=== PATIENT | female | born 1975 | race Caucasian/White ===

== ENCOUNTER 2016-09-24 11:49 | Emergency (ER) | payer BC ==
--- NOTE | 2016-09-24 12:11 | Emergency Department Record ---
History of Present Illness - General Chief Complaint: Abdominal Pain Stated Complaint: STOMACH BUG Time Seen by Provider: 09/24/16 12:06 Source: Patient Mode of Arrival: Ambulatory Limitations: No limitations - History of Present Illness Initial Comments: The patient is here due to a 2 day hx of nausea, vomiting, and loose stools. She has vomited twice today and also has had 2 episodes of diarrhea. She denies any blood in the stool or vomit and does also deny any fever, chills, dysuria or back pain. The patient does have a hx of a gastric sleeve surgery in the past and does have her GB and Appendix. MD Complaint: Abdominal pain Onset/Timin -: Days(s) Location: Diffuse Radiation: None Migration to: No migration Severity: Moderate Quality: Aching Consistency: Constant Improves With: Nothing Worsens With: Vomiting Associated Symptoms: Diarrhea, Nausea, Vomiting - Related Data LMP Date: 09/18/16 Patient : No Home Medications Medication Instructions Recorded Confirmed Last Taken Esomeprazole Magnesium [Nexium] 40 mg PO DAILY 09/24/16 09/24/16 Unknown Ferrous Sulfate [Iron] 325 mg PO DAILY 09/24/16 09/24/16 Unknown Levothyroxine Sodium [Synthroid] 175 mcg PO DAILY 09/24/16 09/24/16 Unknown Previous Rx's Medication Instructions Recorded Ondansetron [Zofran Odt] 4 mg SL .Q4-6H PRN #12 tab.rapdis 09/24/16 Allergies Allergy/AdvReac Type Severity Reaction Status Date / Time morphine AdvReac Severe VOMITING Verified 09/24/16 12:00 Travel Screening - Travel/Exposure Within Last 30 Days Have you traveled within the last 30 days?: No Review of Systems Constitutional: Denies: Chills, Fever Eyes: Denies: Eye discharge ENT: Denies: Congestion Respiratory: Denies: Cough, Dyspnea Past Medical History - SOCIAL HISTORY Smoking Status: Never smoker Alcohol Use: Occasional Drug Use: None - RESPIRATORY Hx Respiratory Disorders: Yes Hx Asthma: Yes Hx Bronchitis: Yes Hx COPD: Yes Hx Pneumonia: Yes - CARDIOVASCULAR Hx Cardio Disorders: Yes Hx Hypotension: Yes - NEURO Hx Neuro Disorders: No - GI Hx GI Disorders: Yes Hx Reflux: Yes Comment:: gallbladder infections - Hx Genitourinary Disorders: Yes Hx Kidney Stones: Yes - ENDOCRINE Hx Endocrine Disorders: Yes Hx Thyroid Disease: Yes - MUSCULOSKELETAL Hx Musculoskeletal Disorders: No - PSYCH Hx Psych Problems: No - HEMATOLOGY/ONCOLOGY Hx Hematology/Oncology Disorders: Yes Hx Cancer: Yes (nasal, ovarian) Hx Chemotherapy: Yes (oral) Hx Radiation Therapy: Yes Comment:: autoimmune disorder Family Medical History Any Significant Family History?: Yes Hx Cancer: Father, Grandparents *Cancer Comment: Aunt-breast Hx Diabetes: Mother Hx Heart Disease: Mother Hx Resp Disorders: Father Physical Exam - General General Appearance: Alert, Oriented x3, Cooperative, No acute distress - Head Head exam: Atraumatic - Eye Eye exam: Normal appearance, PERRL - Neck Neck exam: Normal inspection, Full ROM. negative: Tenderness - Respiratory Respiratory exam: Normal lung sounds bilaterally. negative: Respiratory distress - Cardiovascular Cardiovascular Exam: Regular rate, Normal rhythm, Normal heart sounds - GI/Abdominal GI/Abdominal exam: Soft, Tenderness (There is mild mid abdominal tenderness but the abdomen is very soft.). negative: Distended, Guarding, Hernia, Rebound, Rigid - Extremities Extremities exam: Normal inspection, Full ROM, Normal capillary refill. negative: Tenderness - Neurological Neurological exam: Alert, Normal gait. negative: Abnormal gait, Motor sensory deficit Course Vital Signs 09/24/16 11:55 Temperature 98.0 F Pulse Rate 72 Respiratory 20 Rate Blood Pressure 121/64 Pulse Ox 100 - Reevaluation(s) Reevaluation #1: The patient is doing much better now and denies any nausea or AP. She states she feels the IV fluid helped her very much and she is ready for home. I did explain that the lab tests and CT are all normal. She is to use Zofran for nausea. 09/24/16 14:13 Medical Decision Making - Data Complexity MDM Data: Labs Ordered and/or Reviewed, X-Ray Ordered and/or Reviewed - Lab Data Result diagrams: 09/24/16 12:39 09/24/16 12:39 - Radiology Data Radiology results: Report reviewed (CT: Normal per rad.) Disposition Disposition: Discharge Clinical Impression: Gastroenteritis Disposition: Home, Self-Care Condition: (1) Good Instructions: Gastroenteritis (ED) Additional Instructions: Please see your PCP for recheck in 1-2 days if not better. Use the Zofran for nausea. Please return to the ER for any AP, increased nausea, vomiting, or diarrhea. Prescriptions: Ondansetron [Zofran Odt] 4 mg SL .Q4-6H PRN #12 tab.rapdis PRN Reason: Nausea Forms: Patient Portal Access Time of Disposition: 14:16 Quality - Quality Measures Quality Measures: N/A - Blood Pressure Screening View Details: Yes Blood Pressure Classification: Pre-Hypertensive BP Reading Systolic Measurement: 121 Diastolic Measurement: 64 Screening for High Blood Pressure: < Pre-Hypertensive BP, F/U Documented > [ [id number]] Pre-Hypertensive Follow-up Interventions: Follow-up with rescreen every year.
[2016-09-24] MEDS ORDERED: ONDANSETRON HCL IV 4 MG/2 ML VIAL IV ONE (12:28)
[2016-09-24] MEDS ORDERED: 0.9 % SODIUM CHLORIDE 1,000 ML BAG IV ONE (12:28)
[2016-09-24 12:45] LABS: HEMATOCRIT 36.7 % (35.0-47.0); HEMOGLOBIN 12.5 gm/dl (11.6-16.0); MEAN CELL VOLUME 87.6 fl (81-97); MEAN CORPUSCULAR HEMOGLOBIN 29.8 pg (27-33); MEAN CORPUSCULAR HGB CONC 34.1 g/dl (32-36); MEAN PLATELET VOLUME 8.4 fl (7.4-10.4); PLATELET COUNT 216 K/uL (130-400); RED BLOOD COUNT 4.19 M/uL (3.80-5.40); RED CELL DISTRIBUTION WIDTH 12.1 % (11.5-14.5); WHITE BLOOD COUNT W/O DIFF 4.4 K/uL (4.2-12.2)
[2016-09-24 12:47] LABS: URINE APPEARANCE CLEAR; URINE BILIRUBIN NEGATIVE (NEGATIVE); URINE BLOOD NEGATIVE (NEGATIVE); URINE COLOR YELLOW; URINE GLUCOSE (UA) NEGATIVE (NEGATIVE); URINE KETONE NEGATIVE (NEGATIVE); URINE LEUKOCYTE ESTERASE NEGATIVE (NEGATIVE); URINE NITRITE NEGATIVE (NEGATIVE); URINE PROTEIN NEGATIVE (NEGATIVE); URINE UROBILINOGEN 0.2 E.U./dL (0.20 - 1.00)
[2016-09-24 12:49] LABS: HCG,QUALITATIVE URINE NEGATIVE (NEGATIVE)
[2016-09-24 12:56] LABS: PLATELET ESTIMATE NORMAL (NORMAL)
[2016-09-24 12:57] LABS: ALBUMIN 4.2 gm/dL (3.5-5.0); ALKALINE PHOSPHATASE 51 U/L (38-126); ALT/SGPT 40 U/L (9-52); ANION GAP 9.3 (7-16); AST/SGOT 26 U/L (14-36); BILIRUBIN,TOTAL 0.65 mg/dL (0.2-1.3); BLOOD UREA NITROGEN 8 mg/dL (7-17); CARBON DIOXIDE 27.7 mmol/L (22-30); CREATININE 0.8 mg/dL (0.52-1.04); EST GLOMERULAR FILTRATION RATE > 60 ml/min; GLUCOSE,RANDOM 89 mg/dL (70-110); LIPASE 35 U/L (23-300); TOTAL PROTEIN 7.3 gm/dL (6.3-8.2)
--- NOTE | 2016-09-25 14:59 | CT SCAN REPORT ---
EXAM: ABDOMEN AND PELVIS CT WITH IV CONTRAST HISTORY: ACUTE RIGHT LOWER AND LEFT LOWER QUADRANT ABDOMINAL PAIN, NAUSEA, DIARRHEA. TECHNIQUE: Contiguous axial images from the lung bases to the symphysis pubis were obtained after the uneventful intravenous administration of 95 ml of Omnipaque 300. Oral contrast was also utilized. Comparison: None. FINDINGS: The lung bases are clear. The liver, spleen, kidneys, adrenals, pancreas and gallbladder are normal. Status post gastric sleeve procedure. The visualized loops of small and large bowel are of normal caliber with no bowel wall thickening. Normal appendix. Trace fluid in the cul-de-sac likely physiologic. The uterus is present. There is a cyst in the right ovary measuring 15 mm, likely due to dominant follicle. The abdominal aorta and mesenteric vessels are patent. The abdominal wall is unremarkable. No lytic or blastic osseous lesion. IMPRESSION: 1. NO ACUTE INFLAMMATORY PROCESS OF THE ABDOMEN OR PELVIS. NORMAL APPENDIX. 2. NO INTESTINAL OBSTRUCTION. 3. STATUS POST GASTRIC SLEEVE PROCEDURE. JOB NUMBER: [id number] [facility]
== END 2016-09-24 14:29 | disposition home or self-care (01) ==
LOC: ER 11:49
DX: K52.9 Noninfective gastroenteritis and colitis, unspecified (principal); R10.84 Generalized abdominal pain; R11.2 Nausea with vomiting, unspecified
CPT/HCPCS: 99284 ×2; 96374; 96361; 83690; 80076; 80048; 81003; 81025; 85027; 74177; Q9967; J2405; J7030

== ENCOUNTER 2019-01-26 11:21 | Emergency (ER) | payer BC ==
--- NOTE | 2019-01-26 11:52 | Emergency Department Record ---
History of Present Illness - General Chief Complaint: Abdominal Pain Stated Complaint: LOWER L ABD PAIN Time Seen by Provider: 01/26/19 11:37 Source: Patient Mode of Arrival: Ambulatory Limitations: No limitations - History of Present Illness Initial Comments: The patient has had chronic AP for the last year and now would like it evaluated due to it gradually worsening. She does have the L mid abdominal pain mainly after eating although it never resolves completely. The patient does have a GI doctor but he has not been evaluating the symptoms to the patient's satisfaction. She does have chronic nausea and diarrhea but that is not any worse. The patient has had a gastric sleeve performed over 10 years ago and that is her only abdominal surgery. MD Complaint: Abdominal pain Onset/Timin -: Year(s) Location: LLQ Associated Symptoms: Nausea - Related Data Patient : No Home Medications Medication Instructions Recorded Confirmed Last Taken Albuterol Sulfate 0.083% [Neb] 3 ml NEB .EVERY 4-6 HOURS PRN 01/26/19 01/26/19 Unknown [Albuterol Sulfate] Albuterol Sulfate [Albuterol 8.5 gm IH ASDIR 01/26/19 01/26/19 Unknown Sulfate Hfa] Calcium Carbonate/Vitamin D3 2 tab PO BID 01/26/19 01/26/19 Unknown [Calcium 500 mg Chewable Tablet] Ergocalciferol (Vitamin D2) 50,000 units PO WEEKLY 01/26/19 01/26/19 Unknown [Vitamin D2] Ferrous Sulfate 60 mg PO DAILY 01/26/19 01/26/19 01/26/19 Midodrine HCl 5 mg PO QID 01/26/19 01/26/19 01/26/19 Vitamin B Complex 1 each PO DAILY 01/26/19 01/26/19 Unknown Previous Rx's Medication Instructions Recorded Ondansetron [Zofran Odt] 4 mg SL .Q4-6H PRN #12 tab.rapdis 09/24/16 Dicyclomine HCl [Bentyl] 10 mg PO BID #12 cap 01/26/19 Allergies Allergy/AdvReac Type Severity Reaction Status Date / Time diphenhydramine Allergy HYPERSENSIT Verified 01/26/19 11:44 [From Benadryl] IVITY fish oil Allergy ANAPHYLAXIS Verified 01/26/19 11:44 hydrocodone Allergy HYPERSENSIT Verified 01/26/19 11:44 IVITY tramadol Allergy HYPERSENSIT Verified 01/26/19 11:44 IVITY morphine AdvReac Severe VOMITING Verified 01/26/19 11:36 Travel Screening - Travel/Exposure Within Last 30 Days Have you traveled within the last 30 days?: No - Travel/Exposure Within Last Year Have you traveled outside the [place] in the last year?: No - Additonal Travel Details Have you been exposed to anyone with a communicable illness?: No - Travel Symptoms Symptom Screening: None Review of Systems Constitutional: Denies: Chills, Fever Eyes: Denies: Eye discharge ENT: Denies: Congestion Respiratory: Denies: Cough Cardiovascular: Denies: Arrhythmia, Chest pain Endocrine: Denies: Fatigue Gastrointestinal: Reports: Abdominal pain, Diarrhea, Nausea. Denies: Vomiting Genitourinary: Denies: Dysuria Musculoskeletal: Denies: Arthralgia Skin: Denies: Bruising Past Medical History - SOCIAL HISTORY Smoking Status: Never smoker Alcohol Use: None Drug Use: None - RESPIRATORY Hx Respiratory Disorders: Yes Hx Asthma: Yes Hx Bronchitis: Yes Hx COPD: Yes Hx Pneumonia: Yes - CARDIOVASCULAR Hx Cardio Disorders: Yes Hx Hypotension: Yes - NEURO Hx Neuro Disorders: Yes Hx Headaches: Yes - GI Hx GI Disorders: Yes Hx Abdominal Pain: Yes Hx Celiac Disease: Yes Hx Diverticulitis: Yes (x2) Hx Reflux: Yes Comment:: gallbladder infections - Hx Genitourinary Disorders: Yes Hx Kidney Stones: Yes - ENDOCRINE Hx Endocrine Disorders: Yes Hx Thyroid Disease: Yes - MUSCULOSKELETAL Hx Musculoskeletal Disorders: No - PSYCH Hx Psych Problems: No - HEMATOLOGY/ONCOLOGY Hx Hematology/Oncology Disorders: Yes Hx Cancer: Yes (nasal, ovarian) Hx Chemotherapy: Yes (oral) Hx Radiation Therapy: Yes Comment:: autoimmune disorder Family Medical History Any Significant Family History?: No Hx Cancer: Father, Grandparents *Cancer Comment: Aunt-breast Hx Diabetes: Mother Hx Heart Disease: Mother Hx Resp Disorders: Father Physical Exam - General General Appearance: Alert, Oriented x3, Cooperative, No acute distress - Head Head exam: Atraumatic - Eye Eye exam: Normal appearance - Neck Neck exam: Normal inspection, Full ROM. negative: Tenderness - Respiratory Respiratory exam: Normal lung sounds bilaterally. negative: Respiratory distress - Cardiovascular Cardiovascular Exam: Regular rate, Normal rhythm, Normal heart sounds - GI/Abdominal GI/Abdominal exam: Soft, Normal bowel sounds, Tenderness (There is very mild L m id abdominal tenderness but the abdomen is very soft.). negative: Distended, Guarding, Rebound, Rigid - Extremities Extremities exam: Normal inspection, Full ROM, Normal capillary refill. negative: Tenderness - Back Back exam: Reports: Normal inspection - Neurological Neurological exam: Alert. negative: Motor sensory deficit - Psychiatric Psychiatric exam: negative: Depressed Course Vital Signs 01/26/19 11:25 Temperature 97.8 F Pulse Rate 74 Respiratory 16 Rate Blood Pressure 116/74 Pulse Ox 99 - Reevaluation(s) Reevaluation #1: The patient is presently resting comfortably with no new pain or any discomfort. I did discuss the neg workup including labs and CT. I did refer the patient to GI for further evaluation and workup. 01/26/19 13:52 Medical Decision Making - Data Complexity MDM Data: Labs Ordered and/or Reviewed, X-Ray Ordered and/or Reviewed - Lab Data Result diagrams: 01/26/19 12:00 01/26/19 12:00 - Radiology Data Radiology results: Report reviewed (Abd CT: Neg for any acute changes.) Disposition Disposition: Discharge Clinical Impression: Chronic abdominal pain Disposition: Home, Self-Care Condition: (2) Stable Instructions: Chronic Abdominal Pain (ED) Additional Instructions: Please take Tylenol if needed along with the Bentyl. Please see Dr. Mathis in the Specialty clinic later this week. Return to the ER for any worsening symptoms. Prescriptions: Dicyclomine HCl [Bentyl] 10 mg PO BID #12 cap Referrals: [facility] [Provider Group] HAKEEM MATHIS [DOCTOR OF OSTEOPATH] - Forms: Patient Portal Access Time of Disposition: 13:51 Quality - Quality Measures Quality Measures: N/A - Blood Pressure Screening View Details: Yes Does Patient Have Any of the Following: No Blood Pressure Classification: Normal BP Reading Systolic Measurement: 116 Diastolic Measurement: 74 Screening for High Blood Pressure: < Normal BP, F/U Not Required > [G8783]
[2019-01-26] MEDS ORDERED: 0.9 % SODIUM CHLORIDE 1,000 ML BAG IV ONE (11:53)
[2019-01-26 12:22] LABS: URINE APPEARANCE CLEAR; URINE BILIRUBIN NEGATIVE (NEGATIVE); URINE BLOOD NEGATIVE (NEGATIVE); URINE COLOR YELLOW; URINE GLUCOSE (UA) NEGATIVE (NEGATIVE); URINE KETONE NEGATIVE (NEGATIVE); URINE LEUKOCYTE ESTERASE NEGATIVE (NEGATIVE); URINE NITRITE NEGATIVE (NEGATIVE); URINE PROTEIN NEGATIVE (NEGATIVE); URINE UROBILINOGEN 0.2 E.U./dL (0.20 - 1.00)
[2019-01-26 12:23] LABS: ABSOLUTE NEUTROPHIL COUNT 3.24; BASO % 0.2 % (0-6); EOS % 2.7 % (0-6); GRAN % 53.8 % (47-80); HEMATOCRIT 38.9 % (35.0-47.0); LYMPH % 37.8 % (16-45); MEAN CELL VOLUME 86.4 fl (81-97); MEAN CORPUSCULAR HEMOGLOBIN 28.9 pg (27-33); MEAN CORPUSCULAR HGB CONC 33.4 g/dl (32-36); MEAN PLATELET VOLUME 8.6 fl (7.4-10.4); MONO % 5.5 % (0-9); PLATELET COUNT 302 K/uL (130-400); RED CELL DISTRIBUTION WIDTH 12.2 % (11.5-14.5)
[2019-01-26 12:35] LABS: BLOOD UREA NITROGEN 12 mg/dL (6-20); CREATININE 0.8 mg/dL (0.5-0.9); EST GLOMERULAR FILTRATION RATE > 60 mL/min
[2019-01-26 12:36] LABS: LIPASE 26 U/L (13-60); TOTAL PROTEIN 7.9 g/dL (6.6-8.7)
[2019-01-26 12:38] LABS: GLUCOSE,RANDOM 99 mg/dL (74-109)
[2019-01-26 12:41] LABS: ALB/GLOB RATIO 1.7 (1.1-1.8); ALKALINE PHOSPHATASE 55 U/L (35-104); ALT/SGPT 14 U/L (<33); AST/SGOT 20 U/L (10.0-35.0)
--- NOTE | 2019-01-26 13:41 | CT SCAN REPORT ---
EXAMINATION: CT Abdomen and Pelvis with IV Contrast EXAM DATE: 01/26/2019 1:31 PM TECHNIQUE: CT imaging of the abdomen and pelvis was performed with intravenous contrast. Coronal and sagittal images were reconstructed. IV Contrast: The amount and type of contrast are recorded in the medical record. INDICATION: L sided AP with hx gastric sleeve. COMPARISON: 09/24/2016 ENCOUNTER: Not applicable CT ABDOMEN AND PELVIS FINDINGS: Lung Bases: Included extent of the lung bases are clear. Hepatobiliary: The liver has a normal size with a smooth surface. The hepatic and portal veins appear patent. There is no biliary dilatation and the gallbladder is unremarkable. Pancreas: The pancreas is normal. Spleen: The spleen is not enlarged. Adrenals: The adrenal glands are normal. Kidneys, Ureters, & Bladder: Both kidneys have a normal size and there is no hydronephrosis. Both ur eters have a normal caliber and the urinary bladder is unremarkable. Gastrointestinal: Sleeve gastrectomy changes with no evidence of calculi process. Small bowel loops a re normal. The appendix is normal. The large bowel is normal. Reproductive Organs: Small cystic lesion right ovary measuring 21 mm. Left ovary and uterus unremarka ble. Lymphatic System: There is no adenopathy within the abdomen or pelvis. Vasculature: Normal caliber abdominal aorta. Peritoneum: No free fluid, free air, or inflammation Abdominal Wall & Musculoskeletal: No suspicious bone lesions. IMPRESSION: No evidence of acute process. No findings to explain the patient's pain Dictated by: Karan Ann DO on 01/26/2019 1:34 PM. .
== END 2019-01-26 14:02 | disposition home or self-care (01) ==
LOC: ER 11:21
DX: R10.32 Left lower quadrant pain (principal); G89.29 Other chronic pain; R11.0 Nausea; R19.7 Diarrhea, unspecified; Z98.84 Bariatric surgery status
CPT/HCPCS: 74177; 80053; 81003; 83690; 84703; 85025; 99284